=== PATIENT | female | born 1960 | race Caucasian/White ===

== ENCOUNTER 2022-01-29 06:00 | Outpatient (RCR) | payer MEDICAID, SELFPAY | END 2022-02-07 23:59 | disposition home or self-care (01) | LOC: WPT 06:00 | PROVIDERS: PCP Registered Nurse; Referring Provider Registered Nurse; Visit Provider Registered Nurse | DX: M79.606 Pain in leg, unspecified (principal) | CPT/HCPCS: 97110; 97112; 97161 ==

== ENCOUNTER 2022-02-08 06:00 | Outpatient (RCR) | payer MEDICAID, SELFPAY | END 2022-03-10 23:59 | disposition home or self-care (01) | LOC: WPT 06:00 | PROVIDERS: PCP Registered Nurse; Referring Provider Registered Nurse; Visit Provider Registered Nurse | DX: M79.606 Pain in leg, unspecified (principal); G89.29 Other chronic pain | CPT/HCPCS: 97110; 97140 ==

== ENCOUNTER → 2022-05-13 13:26 | Outpatient (BNVA) | payer MEDICAID, SELFPAY | PROVIDERS: PCP Registered Nurse; Visit Provider Registered Nurse | DX: E03.9 Hypothyroidism, unspecified (principal); Z53.20 Procedure and treatment not carried out because of patient's decision for unspecified reasons | CPT/HCPCS: 80053; 84443; 85025 ==

== ENCOUNTER 2022-10-16 08:58 | Outpatient (CLI) | payer OTHER, MEDICAID, SELFPAY ==
[2022-10-16 09:27] VITALS: PULSE 77; RESP 18; O2SAT 95
[2022-10-16] MEDS: albuterol 2.5 mg/3 mL Neb INHALATION (09:27)
[2022-10-16 09:32] VITALS: PULSE 80
== END 2022-10-16 08:59 | disposition home or self-care (01) ==
LOC: RT 09:08
PROVIDERS: PCP Registered Nurse; Visit Provider Registered Nurse
DX: J44.9 Chronic obstructive pulmonary disease, unspecified (principal)
CPT/HCPCS: 94060; 94729; J7613

== ENCOUNTER → 2023-05-20 10:05 | Outpatient (BNVA) | payer MEDICAID, SELFPAY | PROVIDERS: PCP Registered Nurse; Visit Provider Registered Nurse | DX: E03.9 Hypothyroidism, unspecified (principal) | CPT/HCPCS: 80053; 80061; 84443; 85025 ==

== ENCOUNTER → 2023-12-24 10:04 | Outpatient (BNVA) | payer MEDICAID, SELFPAY | PROVIDERS: PCP Registered Nurse; Visit Provider Registered Nurse | DX: F32.A Depression, unspecified (principal); F17.210 Nicotine dependence, cigarettes, uncomplicated; E03.9 Hypothyroidism, unspecified | CPT/HCPCS: 80053; 84443; 85025 ==

== ENCOUNTER 2024-05-05 13:40 | Outpatient (CLI) | payer MEDICAID, SELFPAY ==
--- NOTE | 2024-05-05 14:00 | CT_ITS ---
WS: [id number] LDCT LUNG CANCER SCREENING TECHNIQUE: Noncontrast CT of the chest with coronal and sagittal reformatted images. CLINICAL INFORMATION: Z12.2 - Encounter for screening for malignant neoplasm of... COMPARISON: None. DLP: 68.90 mGy.cm DIvol: Mean CTDIvol: 1.40 (mGy) All CT scans at [facility] use at least one of these dose optimization techniques: automat ed exposure control; mA and/or kV adjustment per patient size (includes targeted exams where dose is matched to clinical indication); or iterative reconstruction. FINDINGS: Few calcified granulomas. A few scattered subcentimeter nodules. 5 mm nodule RIGHT upper lo be anteriorly. Centrally calcified nodule LEFT lower lobe measuring 11 mm. Atelectasis in the lingula . Normal caliber thoracic aorta. Aortic calcification. Coronary calcification. No mass or hilar lymphad enopathy. No axillary lymphadenopathy. Adrenal glands are normal. Mild thoracic kyphosis. Mild thoracic curve. CT/CT lung screening [id number] IMPRESSION: LUNG-RADS: 2-Benign Appearance or Behavior FOLLOW UP: 12 Month: Continue annual screening with LDCT
== END 2024-05-05 13:41 | disposition home or self-care (01) ==
LOC: RAD 13:41
PROVIDERS: PCP Registered Nurse; Visit Provider Registered Nurse
DX: Z12.2 Encounter for screening for malignant neoplasm of respiratory organs (principal); F17.210 Nicotine dependence, cigarettes, uncomplicated; J84.10 Pulmonary fibrosis, unspecified; R91.8 Other nonspecific abnormal finding of lung field; J98.11 Atelectasis; I70.0 Atherosclerosis of aorta; I25.84 Coronary atherosclerosis due to calcified coronary lesion
CPT/HCPCS: 71271